=== PATIENT | male | born 1935 | race African-American/Black ===

== ENCOUNTER 2017-03-30 09:42 | Inpatient (IN) | payer MEDICARE, OTHER ==
[~2017-03-30] VITALS: Ht 185.4 cm; Wt 97.1 kg
[~2017-03-30 09:42] MED LIST: AMLO1CAP12 PO; AMLO1TAB43 PO; AMPI1VIA3 IJ; ASPI325T8 PO; CALC600T4 PO; CALC667C PO; CARB1TAB47 PO; CLON0.1T PO; CLON0.5T20 PO; CLON0.5T3 PO; CLON1PAT2 TD; CLON1TAB23 PO; GABA-586 PO; GABA600T2 PO; GLIM2TAB2 PO; HYDR1TAB12 PO; LABE100T3 PO; SITA50TA PO; [UNRECOGNIZED DRUG - OTHER] MC; [UNRECOGNIZED DRUG - OTHER] PO
--- NOTE | 2017-03-30 10:11 | EKG ---
[facility] [address] [place] [address] Test Date: 2017-03-30 Test Time: 10:07:23 Pat Name: MEÑO MADERA Department: Room: Gender: M Professional Shopper: : 1935 Requested By: ARLENE MARRERO Order Number: [id number] Reading MD: Measurements Intervals [place] Rate: 63 P: 38 VA: 196 QRS: 20 QRSD: 98 T: -15 QT: 410 QTc: 423 Interpretive Statements SINUS RHYTHM T ABNORMALITY IN ANTEROLATERAL LEADS RI6.01 Unconfirmed report No previous ECG available for comparison
--- NOTE | 2017-03-30 10:39 | PHYS DOC ---
Past Medical History Past Medical History: CHF, Diabetes-Type II, Hypertension, Renal Disease, Renal Failure Past Surgical History: Other Additional Past Surgical Histo: Left arm A/V fistula Alcohol Use: None Drug Use: None Adult General Chief Complaint Chief Complaint: ALTERED MENTAL STATUS HPI HPI Patient is a 81 year old male with a history of dialysis, HTN, and diabetes presents to the ED complaining of syncopal episode/seizure like activity after 2.5 hours of dialysis. EMS states he had an upset stomach, felt nauseous and then started shaking. States he was fine after a few seconds and was alert and oriented. States right now he just feels like his stomach is a little upset. Denies fever, weakness, headache, vision changes, vomiting, abdominal pain, chest pain or shortness of breath. Review of Systems Review of Systems Constitutional: Denies fever or chills [] Eyes: Denies change in visual acuity, redness, or eye pain [] HENT: Denies nasal congestion or sore throat [] Respiratory: Denies cough or shortness of breath [] Cardiovascular: No additional information not addressed in HPI [] GI: Denies abdominal pain, nausea, vomiting, bloody stools or diarrhea [] : Denies dysuria or hematuria [] Musculoskeletal: Denies back pain or joint pain [] Integument: Denies rash or skin lesions [] Neurologic: Denies headache, focal weakness or sensory changes [] Endocrine: Denies polyuria or polydipsia [] Current Medications Current Medications Allergies Allergies Allergies Coded Allergies Type Severity Reaction Last Updated Verified No Known Allergies Allergy Unknown 02/19/17 Yes Physical Exam Physical Exam Constitutional: Well developed, well nourished, no acute distress, non-toxic appearance. [] HENT: Normocephalic, atraumatic, bilateral external ears normal, oropharynx moist, no oral exudates, nose normal. [] Eyes: PERRLA, EOMI, conjunctiva normal, no discharge. [] Neck: Normal range of motion, no tenderness, supple, no stridor. [] Cardiovascular:Heart rate regular rhythm, no murmur [] Lungs & Thorax: Bilateral breath sounds clear to auscultation [] Abdomen: Bowel sounds normal, soft, no tenderness, no masses, no pulsatile masses. [] Skin: Warm, dry, no erythema, no rash. [] Back: No tenderness, no CVA tenderness. [] Extremities: No tenderness, no cyanosis, no clubbing, ROM intact, no edema. [] Neurologic: Alert and oriented X 3, normal motor function, normal sensory function, no focal deficits noted. [] Psychologic: Affect normal, judgement normal, mood normal. [] Current Patient Data Vital Signs Vital Signs Date Time Temp Pulse Resp B/P (MAP) Pulse Ox O2 Delivery O2 Flow Rate FiO2 03/30/17 12:20 60 18 99 03/30/17 09:53 97.6 121/61 (81) Room Air 97.6 Lab Values Laboratory Tests Test 03/30/17 11:45 White Blood Count 20.9 x10^3/uL (4.0-11.0) H Red Blood Count 3.77 x10^6/uL (4.30-5.70) L Hemoglobin 11.4 g/dL (13.0-17.5) L Hematocrit 35.7 % (39.0-53.0) L Mean Corpuscular Volume 95 fL (79-100) Mean Corpuscular Hemoglobin 30 pg (25-35) Mean Corpuscular Hemoglobin Concent 32 g/dL (31-37) Red Cell Distribution Width 15.3 % (11.5-14.5) H Platelet Count 211 x10^3/uL (140-400) Neutrophils (%) (Auto) 86 % (31-73) H Lymphocytes (%) (Auto) 5 % (24-48) L Monocytes (%) (Auto) 7 % (0-9) Eosinophils (%) (Auto) 1 % (0-3) Basophils (%) (Auto) 1 % (0-3) Neutrophils # (Auto) 18.0 x10^3uL (1.8-7.7) H Lymphocytes # (Auto) 1.0 x10^3/uL (1.0-4.8) Monocytes # (Auto) 1.5 x10^3/uL (0.0-1.1) H Eosinophils # (Auto) 0.2 x10^3/uL (0.0-0.7) Basophils # (Auto) 0.2 x10^3/uL (0.0-0.2) Segmented Neutrophils % 74 % (35-66) H Band Neutrophils % 8 % (0-9) Lymphocytes % 7 % (24-48) L Monocytes % 9 % (0-10) Eosinophils % 2 % (0-5) Platelet Estimate Adequate (ADEQUATE) Prothrombin Time 14.5 SEC (11.7-14.0) H Prothrombin Time INR 1.2 (0.8-1.1) H PTT 25 SEC (24-38) Sodium Level 127 mmol/L (136-145) L Potassium Level 6.1 mmol/L (3.5-5.1) *H Chloride Level 101 mmol/L (98-107) Carbon Dioxide Level 11 mmol/L (21-32) *L Anion Gap 15 (6-14) H Blood Urea Nitrogen 20 mg/dL (8-26) Creatinine 7.4 mg/dL (0.7-1.3) H Estimated GFR (Cockcroft-Gault) 8.6 BUN/Creatinine Ratio 3 (6-20) L Glucose Level 165 mg/dL (70-99) H Lactic Acid Level 1.0 mmol/L (0.4-2.0) Calcium Level 8.5 mg/dL (8.5-10.1) Total Bilirubin 0.2 mg/dL (0.2-1.0) Aspartate Amino Transferase (AST) 20 U/L (15-37) Alanine Aminotransferase (ALT) 30 U/L (16-63) Alkaline Phosphatase 68 U/L (46-116) Creatine Kinase 187 U/L (39-308) Creatine Kinase MB (Mass) 2.1 ng/mL (0.0-3.6) Creatine Kinase MB Relative Index 1.1 % (0-4) Troponin I Quantitative < 0.017 ng/mL (0.000-0.055) Total Protein 8.7 g/dL (6.4-8.2) H Albumin 3.8 g/dL (3.4-5.0) Albumin/Globulin Ratio 0.8 (1.0-1.7) L Laboratory Tests 03/30/17 11:45 Laboratory Tests 03/30/17 11:45 EKG EKG [] Radiology/Procedures Radiology/Procedures PROCEDURE: CT HEAD WO CONTRAST CT of the head without contrast, 03/30/2017: History: Seizure, altered mental status Comparison is made to a study from 07/23/2015. There is mild cerebral atrophy. There are mild deep white matter lucencies bilaterally compatible with chronic ischemic change. The ventricles are within normal limits in size. There is no shift of the midline structures. There is no evidence of acute intracranial hemorrhage or mass effect. IMPRESSION: 1. Chronic findings as described above. 2. No acute intracranial abnormality is detected. PQRS Compliance Statement: One or more of the following individualized dose reduction techniques were utilized for this examination: 1. Automated exposure control 2. Adjustment of the mA and/or kV according to patient size 3. Use of iterative reconstruction technique []PROCEDURE: PORTABLE CHEST 1V Portable chest, 03/30/2017: History: Altered mental status, seizure Comparison is made to a study from 02/19/2017. The heart size is normal. There is calcific plaquing of the aorta. The pulmonary vascularity is within normal limits. No pulmonary infiltrates are seen. There is no evidence of pleural fluid. IMPRESSION: No acute cardiopulmonary abnormality is detected. PROCEDURE: CT ABD PELV W/ IV CONTRST ONLY CT of the abdomen and pelvis with contrast, 03/30/2017: History: Vomiting and syncope after dialysis Multidetector CT imaging was performed following an IV bolus injection of iodinated contrast material. Comparison is made to a study from 05/17/2013. There is mild atelectasis in the lung bases posteriorly. Coronary artery calcifications are evident. No hepatic abnormality is seen. The gallbladder, pancreas and spleen are unremarkable. The kidneys are atrophic. Several intrarenal calculi are present on the left. There are several small renal cysts. The kidneys show no evidence of obstruction. There is moderate aortoiliac calcific plaquing. No abdominal or pelvic adenopathy is seen. The bowel loops are not dilated. The stomach is mildly distended with fluid. No free air or significant free fluid is evident in the abdomen or pelvis. IMPRESSION: 1. Bilateral renal atrophy with left intrarenal calculi and small bilateral renal cysts. 2. Mild bibasilar atelectasis. 3. No acute abdominal or pelvic abnormality is detected. Course & Med Decision Making Course & Med Decision Making Pertinent Labs and Imaging studies reviewed. (See chart for details) []Discussed labs and imaging with patient, pending lactate. Patient well appearing on re-examination. Findings consistent with seizure like activity. Discussed case with nephrology, Dr. Cortes and Hospitalist. Dr. Sloan whom agrees to admission and further management of patient. Placed a consult for neurology as well. Dragon Disclaimer Dragon Disclaimer This electronic medical record was generated, in whole or in part, using a voice recognition dictation system. Departure Departure Impression: Primary Impression: Seizure-like activity Additional Impression: Syncope Disposition: ADMITTED INPATIENT Admitting Physician: Other (Reusc) Referrals: TOBIN BUTLER MD (PCP) Problem Qualifiers ARLENE MARRERO Mar 30, 2017 10:39
--- NOTE | 2017-03-30 10:45 | RAD ---
CT of the head without contrast, 03/30/2017: History: Seizure, altered mental status Comparison is made to a study from 07/23/2015. There is mild cerebral atrophy. There are mild deep white matter lucencies bilaterally compatible with chronic ischemic change. The ventricles are within normal limits in size. There is no shift of the midline structures. There is no evidence of acute intracranial hemorrhage or mass effect. IMPRESSION: 1. Chronic findings as described above. 2. No acute intracranial abnormality is detected. PQRS Compliance Statement: One or more of the following individualized dose reduction techniques were utilized for this examination: 1. Automated exposure control 2. Adjustment of the mA and/or kV according to patient size 3. Use of iterative reconstruction technique
--- NOTE | 2017-03-30 11:24 | RAD ---
Portable chest, 03/30/2017: History: Altered mental status, seizure Comparison is made to a study from 02/19/2017. The heart size is normal. There is calcific plaquing of the aorta. The pulmonary vascularity is within normal limits. No pulmonary infiltrates are seen. There is no evidence of pleural fluid. IMPRESSION: No acute cardiopulmonary abnormality is detected.
[2017-03-30 11:56] LABS: BASO # 0.2 x10^3/uL (0.0-0.2); BASO % 1 % (0-3); EOS % 1 % (0-3); HEMATOCRIT 35.7 % (39.0-53.0); HEMOGLOBIN 11.4 g/dL (13.0-17.5); LYMPH % 5 % (24-48); MEAN CORPUSCULAR HEMOGLOBIN 30 pg (25-35); MEAN CORPUSCULAR HGB CONC 32 g/dL (31-37); MEAN CORPUSCULAR VOLUME 95 fL (79-100); MONO % 7 % (0-9); NEUT % 86 % (31-73); PLATELET COUNT 211 x10^3/uL (140-400); RED BLOOD COUNT 3.77 x10^6/uL (4.30-5.70); RED CELL DISTRIBUTION WIDTH 15.3 % (11.5-14.5); WHITE BLOOD COUNT 20.9 x10^3/uL (4.0-11.0)
[2017-03-30 12:12] LABS: ALBUMIN 3.8 g/dL (3.4-5.0); ALBUMIN/GLOBULIN RATIO 0.8 (1.0-1.7); CALCIUM 8.5 mg/dL (8.5-10.1); CREATININE 7.4 mg/dL (0.7-1.3); GFR 8.6; TOTAL BILIRUBIN 0.2 mg/dL (0.2-1.0); TOTAL PROTEIN 8.7 g/dL (6.4-8.2)
[2017-03-30 12:18] LABS: POTASSIUM 6.1 mmol/L (3.5-5.1)
[2017-03-30 12:19] LABS: CKMB MASS 2.1 ng/mL (0.0-3.6)
[2017-03-30 12:25] LABS: INR 1.2 (0.8-1.1); PROTHROMBIN TIME PATIENT 14.5 SEC (11.7-14.0)
[2017-03-30] MEDS ORDERED: CONTRAST GIVEN MC PRN (13:00)
[2017-03-30] MEDS ORDERED: IOHEXOL 300 MG/ML 75 ML VIAL IV ONE (13:00)
[2017-03-30 13:19] LABS: % EOS 2 % (0-5); PLT ESTIMATE ADEQUATE (ADEQUATE)
--- NOTE | 2017-03-30 13:24 | RAD ---
CT of the abdomen and pelvis with contrast, 03/30/2017: History: Vomiting and syncope after dialysis Multidetector CT imaging was performed following an IV bolus injection of iodinated contrast material. Comparison is made to a study from 05/17/2013. There is mild atelectasis in the lung bases posteriorly. Coronary artery calcifications are evident. No hepatic abnormality is seen. The gallbladder, pancreas and spleen are unremarkable. The kidneys are atrophic. Several intrarenal calculi are present on the left. There are several small renal cysts. The kidneys show no evidence of obstruction. There is moderate aortoiliac calcific plaquing. No abdominal or pelvic adenopathy is seen. The bowel loops are not dilated. The stomach is mildly distended with fluid. No free air or significant free fluid is evident in the abdomen or pelvis. IMPRESSION: 1. Bilateral renal atrophy with left intrarenal calculi and small bilateral renal cysts. 2. Mild bibasilar atelectasis. 3. No acute abdominal or pelvic abnormality is detected. PQRS Compliance Statement: One or more of the following individualized dose reduction techniques were utilized for this examination: 1. Automated exposure control 2. Adjustment of the mA and/or kV according to patient size 3. Use of iterative reconstruction technique
[2017-03-30] MEDS ORDERED: ONDANSETRON PF 4 MG/2 ML VIAL. IV PRN (14:00)
[2017-03-30] MEDS ORDERED: MORPHINE SULFATE 2 MG/ML DISP.SYRIN. IV PRN (14:00)
[2017-03-30 16:05] VITALS: BP 125/58
[2017-03-30 16:06] VITALS: BP 125/58
[2017-03-30] MEDS ORDERED: IV NORMAL SALINE 1000ML BAG 1,000 ML IV PRN (16:30)
[2017-03-30] MEDS ORDERED: FOLI0.8T3 PO (17:06)
[2017-03-30] MEDS ORDERED: GLIM1TAB PO (17:06)
[2017-03-30] MEDS ORDERED: DIALYSIS PATIENT. MC PRN (20:00)
[2017-03-30 21:00] VITALS: BP 133/65
[2017-03-30] MEDS ORDERED: DEXTROSE 50% 25 GM / 50ML DISP.SYRIN. IV PRN (21:45)
[2017-03-30] MEDS ORDERED: GABAPENTIN 300 MG CAPSULE. PO SCH (22:00)
--- NOTE | 2017-03-30 22:22 | HP ---
ADMIT DATE: 03/30/2017 CHIEF COMPLAINT: Syncope in dialysis. HISTORY OF PRESENT ILLNESS: The patient is an 81-year-old gentleman with end-stage renal disease and hypertension who presented to the Emergency Room via transfer from dialysis center where he was noted to have a syncopal episode with shaking about 2-1/2 hours into his dialysis. He relates that he had an upset stomach for the last day, felt nauseous, started shaking (actually takes Klonopin for the tremors). He does not remember the episode at all, apparently was alert and oriented immediately afterwards. His stomach upset since then has been getting better. Both he and his have some cough and upper respiratory symptoms, but mild without any fevers, headaches, vision changes or abdominal pain. In the Emergency Room, he was found with potassium of greater than 6 and therefore admitted for continued dialysis and workup of his syncopal episode. Of note, the patient actually was admitted with same symptoms in 01/2017. PAST MEDICAL HISTORY: End-stage renal disease, hyperkalemia, hypertension, CHF, systolic with an EF of 40-45%, moderate diastolic dysfunction as well, hyperlipidemia, peripheral vascular disease, status post CVA, diabetes mellitus type 2, hypothyroidism, GERD, osteoarthritis and tremors. FAMILY HISTORY: Denies any family history of renal disease. SOCIAL HISTORY: Lives with his . No toxic habits. ALLERGIES: No known drug allergies. MEDICATIONS: MAR reconciled with home medications. REVIEW OF SYSTEMS: Positive as per HPI. His abdominal symptoms have improved. Denies any pain. He is hungry, did not have any episodes of vomiting. PHYSICAL EXAMINATION: VITAL SIGNS: From today show a blood pressure of 133/65, heart rate at 79, respiratory rate at 20. He is afebrile, of note, none of the blood pressures noted in the ER are low. GENERAL: This is an 81-year-old gentleman, alert and oriented, in no acute distress. HEENT: Shows no scleral icterus. NECK: Supple. LUNGS: Clear. HEART: Has regular rate and rhythm. ABDOMEN: Has positive bowel sounds, soft, nontender. EXTREMITIES: Show no edema, no clubbing, no cyanosis. SKIN: Warm, soft and dry. LABORATORY DATA: CBC with a WBC of 20.9, hemoglobin 11.4, platelets of 212. Manual differential with 74 segs and 8 bands. Chemistries with a BUN and creatinine of 20 and 7.4. Sodium of 127, potassium 6.1, CO2 of 11. LFTs within normal, albumin at 3.8, glucose 165. ASSESSMENT AND PLAN: The patient is an 81-year-old gentleman with multiple medical issues and recurrent episode of syncope at dialysis. He had been worked up by Cardiology and Nephrology during his past admit in January. The syncopal episode was attributed to fluid shifts during dialysis. Suspect the same is true this time. The findings are hauntingly similar including metabolic acidosis as well as hyperkalemia and hyponatremia. He has received continued dialysis here in the hospital already. We will continue to follow him closely with his labs. What is different this time is he has signs and symptoms of infection, although etiology or specific source is not clear. Possible viral GI infection as the symptoms of nausea seemed to have improved. However, white count is significantly high with left shift. We will start broad spectrum antibiotics. Blood cultures have been obtained. Await further results. Diabetes currently is well controlled. Continue home meds and add insulin sliding scale. All other home medications will be continued. MICK BOSTON MD DR: JONELLE/nts JOB#: [id number] / [id number] TOBIN Zabala MD [facility]
[2017-03-30 23:20] VITALS: BP 140/70
[2017-03-30] MEDS: clonazePAM 0.5 MG TABLET PO SCH (23:28)
[2017-03-30] MEDS: LISINOPRIL 20 MG TABLET PO SCH (23:29)
[2017-03-30] MEDS: amLODIPine BESYLATE 10 MG TABLET PO SCH (23:29)
[2017-03-31 03:02] LABS: BASO % 0 % (0-3); EOS % 1 % (0-3); HEMATOCRIT 33.1 % (39.0-53.0); HEMOGLOBIN 11.2 g/dL (13.0-17.5); LYMPH # 1.5 x10^3/uL (1.0-4.8); LYMPH % 14 % (24-48); MEAN CORPUSCULAR HEMOGLOBIN 30 pg (25-35); MEAN CORPUSCULAR HGB CONC 34 g/dL (31-37); MEAN CORPUSCULAR VOLUME 89 fL (79-100); MONO % 6 % (0-9); NEUT % 79 % (31-73); PLATELET COUNT 200 x10^3/uL (140-400); RED BLOOD COUNT 3.73 x10^6/uL (4.30-5.70); RED CELL DISTRIBUTION WIDTH 14.4 % (11.5-14.5); WHITE BLOOD COUNT 10.7 x10^3/uL (4.0-11.0)
[2017-03-31 03:20] VITALS: BP 128/62
[2017-03-31 03:22] LABS: ALBUMIN 3.2 g/dL (3.4-5.0); ALBUMIN/GLOBULIN RATIO 0.7 (1.0-1.7); CALCIUM 8.4 mg/dL (8.5-10.1); CREATININE 5.5 mg/dL (0.7-1.3); GFR 12.1; POTASSIUM 3.7 mmol/L (3.5-5.1); TOTAL BILIRUBIN 0.2 mg/dL (0.2-1.0); TOTAL PROTEIN 8.1 g/dL (6.4-8.2)
[2017-03-31 07:00] VITALS: BP 124/64
[2017-03-31] MEDS ORDERED: GLIMEPIRIDE 2 MG TABLET. PO SCH (08:00)
[2017-03-31] MEDS ORDERED: FOLIC/VIT B COMP W-C (RENAL) TABLET. PO SCH ×2 (09:00)
[2017-03-31] MEDS ORDERED: BENAZEPRIL PO SCH (09:00)
[2017-03-31] MEDS ORDERED: ASPIRIN 325 MG TABLET PO SCH (09:00)
[2017-03-31] MEDS ORDERED: GLIMEPIRIDE PO SCH (09:00)
[2017-03-31] MEDS ORDERED: [UNRECOGNIZED DRUG - OTHER] PO SCH (09:00)
[2017-03-31] MEDS ORDERED: LABETALOL HCL 100 MG TABLET. PO SCH (09:00)
[2017-03-31] MEDS ORDERED: LINAGLIPTIN 5 MG TABLET PO SCH (09:00)
[2017-03-31] MEDS ORDERED: AMLODIPINE BESYLATE PO SCH (09:00)
[2017-03-31] MEDS: INSULIN ASPART 300 UNITS/3 ML INSULN.PEN SQ SCH ×2 (09:37→12:05)
--- NOTE | 2017-03-31 09:38 | PDOC ---
PROGRESS NOTES Chief Complaint Chief Complaint Syncope at HD ASSESSMENT AND PLAN: 1. Syncope: hx of same, with complete W/U in 01/2017. 2. Hyperkalemia: critical. received HD yesterday in hospital 3. ESRD: on HD as per nephrology 4. Metabolic Acidosis: resolved monitor w/HD 5. Leukocytosis : resolved w/in 12 hrs 6. 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 EPO, iron with HD 7. CHF: echo 02/19 with EF 40-45%, mod DD. 8. HTN: well controlled. cont current regimen; monitor 9. HLD: on statin 10. PVD: hx CVA 11. DM2: well controlled on home regimen. ISS added. recent HgbA1c 6.9 12. Diabetic neuropathy: on gabapentin 13. Hypothyroidism: borderline high TSH with lowish T7. needs to be repeated in non-critical setting, kiran at his age. 14. GERD 15. OA: cont home regimen 16. Anxiety: on clonazepam; change to PRN as he appears sedated 17. Snoring: with accompanying O2 drop - suspicious for REBECA. needs sleep study on O/P basis 18. Prophylaxis: heparin SQ 19. Dispo: home when cleared by nephrology History of Present Illness History of Present Illness feels fine, no dizziness, lightheadedness, no SOB Vitals Vitals Vital Signs Date Time Temp Pulse Resp B/P (MAP) Pulse Ox O2 Delivery O2 Flow Rate FiO2 03/31/17 07:00 99.4 77 20 124/64 (84) 96 Room Air 99.4 Physical Exam General: Alert, Oriented X3, Cooperative Heart: Regular rate Lungs: Clear Abdomen: Normal bowel sounds Extremities: No clubbing, No edema Skin: No rashes Labs LABS Laboratory Tests Test 03/30/17 11:45 03/30/17 21:04 03/31/17 02:30 03/31/17 07:46 White Blood Count 20.9 x10^3/uL (4.0-11.0) 10.7 x10^3/uL (4.0-11.0) Red Blood Count 3.77 x10^6/uL (4.30-5.70) 3.73 x10^6/uL (4.30-5.70) Hemoglobin 11.4 g/dL (13.0-17.5) 11.2 g/dL (13.0-17.5) Hematocrit 35.7 % (39.0-53.0) 33.1 % (39.0-53.0) Mean Corpuscular Volume 95 fL (79-100) 89 fL (79-100) Mean Corpuscular Hemoglobin 30 pg (25-35) 30 pg (25-35) Mean Corpuscular Hemoglobin Concent 32 g/dL (31-37) 34 g/dL (31-37) Red Cell Distribution Width 15.3 % (11.5-14.5) 14.4 % (11.5-14.5) Platelet Count 211 x10^3/uL (140-400) 200 x10^3/uL (140-400) Neutrophils (%) (Auto) 86 % (31-73) 79 % (31-73) Lymphocytes (%) (Auto) 5 % (24-48) 14 % (24-48) Monocytes (%) (Auto) 7 % (0-9) 6 % (0-9) Eosinophils (%) (Auto) 1 % (0-3) 1 % (0-3) Basophils (%) (Auto) 1 % (0-3) 0 % (0-3) Neutrophils # (Auto) 18.0 x10^3uL (1.8-7.7) 8.4 x10^3uL (1.8-7.7) Lymphocytes # (Auto) 1.0 x10^3/uL (1.0-4.8) 1.5 x10^3/uL (1.0-4.8) Monocytes # (Auto) 1.5 x10^3/uL (0.0-1.1) 0.6 x10^3/uL (0.0-1.1) Eosinophils # (Auto) 0.2 x10^3/uL (0.0-0.7) 0.2 x10^3/uL (0.0-0.7) Basophils # (Auto) 0.2 x10^3/uL (0.0-0.2) 0.0 x10^3/uL (0.0-0.2) Segmented Neutrophils % 74 % (35-66) Band Neutrophils % 8 % (0-9) Lymphocytes % 7 % (24-48) Monocytes % 9 % (0-10) Eosinophils % 2 % (0-5) Platelet Estimate Adequate (ADEQUATE) Prothrombin Time 14.5 SEC (11.7-14.0) Prothromb Time International Ratio 1.2 (0.8-1.1) Activated Partial Thromboplast Time 25 SEC (24-38) Sodium Level 127 mmol/L (136-145) 135 mmol/L (136-145) Potassium Level 6.1 mmol/L (3.5-5.1) 3.7 mmol/L (3.5-5.1) Chloride Level 101 mmol/L (98-107) 98 mmol/L (98-107) Carbon Dioxide Level 11 mmol/L (21-32) 26 mmol/L (21-32) Anion Gap 15 (6-14) 11 (6-14) Blood Urea Nitrogen 20 mg/dL (8-26) 15 mg/dL (8-26) Creatinine 7.4 mg/dL (0.7-1.3) 5.5 mg/dL (0.7-1.3) Estimated GFR (Cockcroft-Gault) 8.6 12.1 BUN/Creatinine Ratio 3 (6-20) 3 (6-20) Glucose Level 165 mg/dL (70-99) 155 mg/dL (70-99) Lactic Acid Level 1.0 mmol/L (0.4-2.0) Calcium Level 8.5 mg/dL (8.5-10.1) 8.4 mg/dL (8.5-10.1) Total Bilirubin 0.2 mg/dL (0.2-1.0) 0.2 mg/dL (0.2-1.0) Aspartate Amino Transf (AST/SGOT) 20 U/L (15-37) 18 U/L (15-37) Alanine Aminotransferase (ALT/SGPT) 30 U/L (16-63) 28 U/L (16-63) Alkaline Phosphatase 68 U/L (46-116) 57 U/L (46-116) Creatine Kinase 187 U/L (39-308) Creatine Kinase MB (Mass) 2.1 ng/mL (0.0-3.6) Creatine Kinase MB Relative Index 1.1 % (0-4) Troponin I Quantitative < 0.017 ng/mL (0.000-0.055) < 0.017 ng/mL (0.000-0.055) Total Protein 8.7 g/dL (6.4-8.2) 8.1 g/dL (6.4-8.2) Albumin 3.8 g/dL (3.4-5.0) 3.2 g/dL (3.4-5.0) Albumin/Globulin Ratio 0.8 (1.0-1.7) 0.7 (1.0-1.7) Glucose (Fingerstick) 132 mg/dL (70-99) 111 mg/dL (70-99) MICK BOSTON MD Mar 31, 2017 09:38
[2017-03-31] MEDS: CALCIUM ACETATE 667 MG CAPSULE PO SCH ×2 (09:40→12:14)
[2017-03-31] MEDS: amLODIPine BESYLATE 10 MG TABLET PO SCH (09:40)
[2017-03-31] MEDS: LISINOPRIL 20 MG TABLET PO SCH (09:40)
[2017-03-31] MEDS: clonazePAM 0.5 MG TABLET PO SCH (09:40)
[2017-03-31 10:54] VITALS: BP 137/67
--- NOTE | 2017-03-31 12:52 | PDOC2 ---
CONSULT Date of Consult Date of Consult DATE: 03/31/17 TIME: 12:50 Reason for Consult Reason for Consult: ESRD Referring Physician Referring Physician: Dr Sloan Identification/Chief Complaint Chief Complaint Syncope/ Pre-Syncope on HD Problems: Source Source: Chart review, Patient History of Present Illness Reason for Visit: as dictated Past Medical History Cardiovascular: CHF, HTN, Hyperlipidemia CENTRAL NERVOUS SYSTEM: Periperal neuropathy GI: GERD Heme/Onc: Anemia NOS Psych: Anxiety Musculoskeletal: Osteoarthritis Infectious disease: Other Renal/: Chronic renal failure, Other Endocrine: Diabetes Past Surgical History Past Surgical History: Cataract Removal, Other Family History Family History: Diabetes Social History ALCOHOL: none Drugs: None Lives: with Family Current Medications Current Medications Current Medications Iohexol (Omnipaque 300 Mg/ml) 75 ml 1X ONCE IV Last administered on 03/30/17 12:53; Start 03/30/17 at 13:00; Stop 03/30/17 at 13:01; Status DC Info (Do NOT chart on this entry -- for MONITORING) 1 each PRN DAILY PRN MC SEE COMMENTS; Start 03/30/17 at 13:00; Stop 04/01/17 at 12:59 Ondansetron HCl (Zofran) 4 mg PRN Q8HRS PRN IV NAUSEA/VOMITING Last administered on 03/30/17 15:59; Start 03/30/17 at 14:00; Stop 03/31/17 at 13:59 Morphine Sulfate 2 mg PRN Q2HR PRN IV PAIN; Start 03/30/17 at 14:00; Stop 03/31 at 13:59 Sodium Chloride 1,000 ml @ 400 mls/hr Q2H30M PRN IV PATENCY; Start 03/30/17 at 16:30; Stop 03/31/17 at 04:29; Status DC Info (PHARMACY MONITORING -- do not chart) 1 each PRN DAILY PRN MC SEE COMMENTS ; Start 03/30/17 at 20:00 Aspirin (Chuckie Aspirin) 325 mg DAILY PO Last administered on 03/31/17 09:40; Start 03/31/17 at 09:00 Calcium Acetate (Phoslo) 2,001 mg TIDAC PO Last administered on 03/31/17 12:14 ; Start 03/31/17 at 07:30 Clonazepam (KlonoPIN) 0.5 mg TID PO Last administered on 03/31/17 09:40; Start 03/30/17 at 21:45 Vitamin B Complex/ Vitamin C (Tess-Kunal) 1 tab DAILY PO Last administered on 09:41; Start 03/31/17 at 09:00 Glimepiride (Amaryl) 2 mg BIDWMEALS PO Last administered on 03/31/17 09:40; Start 03/31/17 at 08:00 Labetalol HCl (Trandate) 100 mg DAILY PO Last administered on 03/31/17 09:41; Start 03/31/17 at 09:00 Non-Formulary Medication 1 each BID PO ; Start 03/31/17 at 09:00; Status UNV Vitamin B Complex/ Vitamin C (Tess-Kunal) 1 tab DAILY PO ; Start 03/31/17 at 09: 00 Gabapentin (Neurontin) 600 mg HS PO Last administered on 03/30/17 23:28; Start 03/30/17 at 22:00 Non-Formulary Medication 2 tab DAILY PO ; Start 03/31/17 at 09:00; Status UNV Linagliptin (Tradjenta) 5 mg DAILY08 PO Last administered on 03/31/17 09:41; Start 03/31/17 at 09:00 Amlodipine Besylate (Norvasc) 10 mg BID PO Last administered on 03/31/17 09:40 ; Start 03/30/17 at 22:00 Lisinopril (Prinivil) 20 mg BID PO Last administered on 03/31/17 09:40; Start 03/30/17 at 21:00 Insulin Aspart (NovoLOG) 0-5 UNITS TIDWMEALS SQ ; Start 03/31/17 at 08:00 Dextrose (Dextrose 50%-Water Syringe) 12.5 gm PRN Q15MIN PRN IV SEE COMMENTS; Start 03/30/17 at 21:45 Ceftriaxone Sodium 1 gm/ Sodium Chloride 50 ml @ 100 mls/hr Q24H IV Last administered on 03/30/17 23:30; Start 03/30/17 at 22:00 Active Scripts Active Reported Nephro-Kunal Tablet (Folic Acid/Vitamin B Comp W-C) 0.8 Mg Tablet 1 Tab PO DAILY Amaryl (Glimepiride) 1 Mg Tablet 2 Tab PO DAILY Labetalol Hcl 100 Mg Tablet 1 Tab PO DAILY Januvia (Sitagliptin Phosphate) 50 Mg Tablet 1 Tab PO DAILY Glimepiride 2 Mg Tablet 1 Tab PO BID Gabapentin 600 Mg Tablet 600 Mg PO TID Clonazepam 0.5 Mg Tablet 0.5 Mg PO TID Calcium Acetate 667 Mg Capsule 2,001 Mg PO TIDAC Amlodipine-Benazepril 10-20 Mg (Amlodipine Besylate/Benazepril) 1 Each Capsule 1 Each PO BID Nephronex Capsule (Folic Acid/B Complex & C No.10) 1 Mg Capsule 1 Cap PO DAILY Aspirin 325 Mg Tablet 325 Mg PO DAILY Allergies Allergies: Coded Allergies: No Known Allergies (Verified Allergy, Unknown, 02/19/17) ROS Review of System GEN: no Fevers no Chills EYES: no Visual Complaints ENT: no EN Drainage no Hearing deficiets CVS: no Orthopnea no CP RESP: no SOB no MARCOS GI: no Nausea no Vomiting : no Dysuria no Urgency HEME: no easy bruising no Palp Ly Nodes NEURO no Focal Weakness no Sz PSYCH: no Suicidal Ideation no Depression SKIN: no Rashes ENDO: no Polyuria or Polydipsia no Hot/Cold Intolerance MU SK: no Arthraigia no Myalgia Physical Exam Physical Exam General Appearance: Awake Alert Oriented x 3 In no Distress Eyes: VIsion Unchanged Conjunctiva Normal EN: No EN Drainage Mucous Memb. moist Neck: no JVD min JVP Supple no Thyromegaly CVS: S1 S2 + Murmur No Gallop No Rub no Edema Resp: no Rales no Rhonchi no Acc. Muscle use GI: BAS +ve NO Bruit Non Tender Non Distended : no CVA tenderness; no Suprapubic Tenderness SKIN: no Rashes Breast Exam deferred Mu.Sk: Adequate ROM min Muscle Atrophy Heme: Unable to palpate Obvious LAD no Splenomegaly NEURO: Good Strength and Tone Cranial Nerves II - XII grossly intact Psych: not Depressed no Active hallucination Vital Signs Vital Signs Date Time Temp Pulse Resp B/P (MAP) Pulse Ox O2 Delivery O2 Flow Rate FiO2 03/31/17 10:54 99.2 81 20 137/67 (90) 96 Room Air 99.2 Assessment & Plan ESRD Current FLuid and E-lyte status does not necessitate emergent need for Dialysis. Will re-evaluate for Dialysis in am and continue on MWF schedule. ^K - assow ith Met Aicdosis - better now Met Acidosis - Better after HD Anemia: Epogen if hgb < 10. Transfuse with next HD as needed. HTN: (transient Hypotension vs Sz) Current BP meds reviewed. See orders for changes. HypoNatremia - now resolved Discussed Plan of Care and prognosis etc. at length with family. Labs Labs Laboratory Tests Test 03/30/17 11:45 03/30/17 21:04 03/31/17 02:30 03/31/17 07:46 White Blood Count 20.9 x10^3/uL (4.0-11.0) 10.7 x10^3/uL (4.0-11.0) Red Blood Count 3.77 x10^6/uL (4.30-5.70) 3.73 x10^6/uL (4.30-5.70) Hemoglobin 11.4 g/dL (13.0-17.5) 11.2 g/dL (13.0-17.5) Hematocrit 35.7 % (39.0-53.0) 33.1 % (39.0-53.0) Mean Corpuscular Volume 95 fL (79-100) 89 fL (79-100) Mean Corpuscular Hemoglobin 30 pg (25-35) 30 pg (25-35) Mean Corpuscular Hemoglobin Concent 32 g/dL (31-37) 34 g/dL (31-37) Red Cell Distribution Width 15.3 % (11.5-14.5) 14.4 % (11.5-14.5) Platelet Count 211 x10^3/uL (140-400) 200 x10^3/uL (140-400) Neutrophils (%) (Auto) 86 % (31-73) 79 % (31-73) Lymphocytes (%) (Auto) 5 % (24-48) 14 % (24-48) Monocytes (%) (Auto) 7 % (0-9) 6 % (0-9) Eosinophils (%) (Auto) 1 % (0-3) 1 % (0-3) Basophils (%) (Auto) 1 % (0-3) 0 % (0-3) Neutrophils # (Auto) 18.0 x10^3uL (1.8-7.7) 8.4 x10^3uL (1.8-7.7) Lymphocytes # (Auto) 1.0 x10^3/uL (1.0-4.8) 1.5 x10^3/uL (1.0-4.8) Monocytes # (Auto) 1.5 x10^3/uL (0.0-1.1) 0.6 x10^3/uL (0.0-1.1) Eosinophils # (Auto) 0.2 x10^3/uL (0.0-0.7) 0.2 x10^3/uL (0.0-0.7) Basophils # (Auto) 0.2 x10^3/uL (0.0-0.2) 0.0 x10^3/uL (0.0-0.2) Segmented Neutrophils % 74 % (35-66) Band Neutrophils % 8 % (0-9) Lymphocytes % 7 % (24-48) Monocytes % 9 % (0-10) Eosinophils % 2 % (0-5) Platelet Estimate Adequate (ADEQUATE) Prothrombin Time 14.5 SEC (11.7-14.0) Prothromb Time International Ratio 1.2 (0.8-1.1) Activated Partial Thromboplast Time 25 SEC (24-38) Sodium Level 127 mmol/L (136-145) 135 mmol/L (136-145) Potassium Level 6.1 mmol/L (3.5-5.1) 3.7 mmol/L (3.5-5.1) Chloride Level 101 mmol/L (98-107) 98 mmol/L (98-107) Carbon Dioxide Level 11 mmol/L (21-32) 26 mmol/L (21-32) Anion Gap 15 (6-14) 11 (6-14) Blood Urea Nitrogen 20 mg/dL (8-26) 15 mg/dL (8-26) Creatinine 7.4 mg/dL (0.7-1.3) 5.5 mg/dL (0.7-1.3) Estimated GFR (Cockcroft-Gault) 8.6 12.1 BUN/Creatinine Ratio 3 (6-20) 3 (6-20) Glucose Level 165 mg/dL (70-99) 155 mg/dL (70-99) Lactic Acid Level 1.0 mmol/L (0.4-2.0) Calcium Level 8.5 mg/dL (8.5-10.1) 8.4 mg/dL (8.5-10.1) Total Bilirubin 0.2 mg/dL (0.2-1.0) 0.2 mg/dL (0.2-1.0) Aspartate Amino Transf (AST/SGOT) 20 U/L (15-37) 18 U/L (15-37) Alanine Aminotransferase (ALT/SGPT) 30 U/L (16-63) 28 U/L (16-63) Alkaline Phosphatase 68 U/L (46-116) 57 U/L (46-116) Creatine Kinase 187 U/L (39-308) Creatine Kinase MB (Mass) 2.1 ng/mL (0.0-3.6) Creatine Kinase MB Relative Index 1.1 % (0-4) Troponin I Quantitative < 0.017 ng/mL (0.000-0.055) < 0.017 ng/mL (0.000-0.055) Total Protein 8.7 g/dL (6.4-8.2) 8.1 g/dL (6.4-8.2) Albumin 3.8 g/dL (3.4-5.0) 3.2 g/dL (3.4-5.0) Albumin/Globulin Ratio 0.8 (1.0-1.7) 0.7 (1.0-1.7) Glucose (Fingerstick) 132 mg/dL (70-99) 111 mg/dL (70-99) Test 03/31/17 11:41 Glucose (Fingerstick) 143 mg/dL (70-99) Laboratory Tests Test 03/30/17 21:04 03/31/17 02:30 03/31/17 07:46 03/31/17 11:41 Glucose (Fingerstick) 132 mg/dL (70-99) 111 mg/dL (70-99) 143 mg/dL (70-99) White Blood Count 10.7 x10^3/uL (4.0-11.0) Red Blood Count 3.73 x10^6/uL (4.30-5.70) Hemoglobin 11.2 g/dL (13.0-17.5) Hematocrit 33.1 % (39.0-53.0) Mean Corpuscular Volume 89 fL (79-100) Mean Corpuscular Hemoglobin 30 pg (25-35) Mean Corpuscular Hemoglobin Concent 34 g/dL (31-37) Red Cell Distribution Width 14.4 % (11.5-14.5) Platelet Count 200 x10^3/uL (140-400) Neutrophils (%) (Auto) 79 % (31-73) Lymphocytes (%) (Auto) 14 % (24-48) Monocytes (%) (Auto) 6 % (0-9) Eosinophils (%) (Auto) 1 % (0-3) Basophils (%) (Auto) 0 % (0-3) Neutrophils # (Auto) 8.4 x10^3uL (1.8-7.7) Lymphocytes # (Auto) 1.5 x10^3/uL (1.0-4.8) Monocytes # (Auto) 0.6 x10^3/uL (0.0-1.1) Eosinophils # (Auto) 0.2 x10^3/uL (0.0-0.7) Basophils # (Auto) 0.0 x10^3/uL (0.0-0.2) Sodium Level 135 mmol/L (136-145) Potassium Level 3.7 mmol/L (3.5-5.1) Chloride Level 98 mmol/L (98-107) Carbon Dioxide Level 26 mmol/L (21-32) Anion Gap 11 (6-14) Blood Urea Nitrogen 15 mg/dL (8-26) Creatinine 5.5 mg/dL (0.7-1.3) Estimated GFR (Cockcroft-Gault) 12.1 BUN/Creatinine Ratio 3 (6-20) Glucose Level 155 mg/dL (70-99) Calcium Level 8.4 mg/dL (8.5-10.1) Total Bilirubin 0.2 mg/dL (0.2-1.0) Aspartate Amino Transf (AST/SGOT) 18 U/L (15-37) Alanine Aminotransferase (ALT/SGPT) 28 U/L (16-63) Alkaline Phosphatase 57 U/L (46-116) Troponin I Quantitative < 0.017 ng/mL (0.000-0.055) Total Protein 8.1 g/dL (6.4-8.2) Albumin 3.2 g/dL (3.4-5.0) Albumin/Globulin Ratio 0.7 (1.0-1.7) SLAVA OLIVEIRA MD Mar 31, 2017 12:52
--- NOTE | 2017-03-31 22:49 | CONS ---
DATE OF CONSULTATION: PRIMARY CARE PHYSICIAN: Richa Sloan M.D. REASON FOR CONSULTATION: Insert altered mental status. HISTORY OF PRESENT ILLNESS: The patient is an 81-year-old -[place] gentleman with ESRD, dialyzes on a Sunday, Sunday and Sunday basis. He was at dialysis yesterday. He apparently had a pneumonia recently and may have lost some weight, however, has started to eat better and appetite has picked up. The patient was at dialysis in about 2-1/2 hours and during dialysis, developed a syncopal episode/seizure-like activity. His blood pressures were high, then low and then high again. According to the , he also had nausea and he was brought to the ER for further evaluation. In this setting, on arrival to the ER, he was noted to have a sodium of 127, potassium of 6.1 and a bicarbonate of 11. He was emergently dialyzed yesterday and these numbers are much better today. He denies any problems at this time. He is eating and drinking pretty well. He denies current ongoing fevers or chills at this time, although he is noted to have a low grade fever of 99.5 yesterday and 99.2, currently. Imaging studies were reviewed and are nonrevealing for obvious source per se. For rest of the details, please see electronic records. SLAVA OLIVEIRA MD DR: CHELY/rome JOB#: [id number] / [id number]
--- NOTE | 2017-04-02 16:40 | DS ---
DATE OF DISCHARGE: 03/31/2017 CHIEF COMPLAINT: Syncope at HD. HOSPITAL COURSE: The patient is an 81-year-old gentleman who experienced a syncopal episode during dialysis. In the Emergency Room, he was found with hyperkalemia and metabolic acidosis and therefore admitted for urgent additional dialysis. Of note, he had identical presentation about a month prior in January of 2017 and had received complete neurology and cardiology workup at that time without any significant findings. Echo in January had shown an EF of 40-45% and moderate diastolic dysfunction. All his home medications were continued. No other complications arose. PHYSICAL EXAMINATION: VITAL SIGNS: Show blood pressure of 124/64, heart rate of 77, respiratory rate of 20. He is afebrile. GENERAL: This is a well-nourished 81-year-old frail appearing -[place] gentleman, alert and oriented, no acute distress. LUNGS: Clear. HEART: Regular rate and rhythm. ABDOMEN: Has positive bowel sounds, soft, nontender. EXTREMITIES: Show no edema. DISCHARGE DATE: March 31. DISCHARGE DIAGNOSES: Syncope (attributed to rapid fluid shift at dialysis). DISCHARGE DISPOSITION: To home. DISCHARGE CONDITION: Improved. DISCHARGE MEDICATIONS: Please refer to MAR. DISCHARGE INSTRUCTIONS: The patient will continue with dialysis as previously arranged. He will follow up with his primary care physician in 1-2 weeks. MICK BOSTON MD DR: JONELLE/nts JOB#: [id number] / [id number] TOBIN Zabala MD MTDD
== END 2017-03-31 14:17 | disposition home or self-care (01) | DRG 291 ==
LOC: ER 09:42 → 6 SOUTH 12:50
PROVIDERS: ADMIT Internal Medicine Hematology & Oncology; ATTEND Internal Medicine Hematology & Oncology
DX: I13.2 Hypertensive heart and chronic kidney disease with heart failure and with stage 5 chronic kidney disease, or end stage renal disease (principal); N18.6 End stage renal disease; E87.2 Acidosis; R06.83 Snoring; E87.1 Hypo-osmolality and hyponatremia; I50.42 Chronic combined systolic (congestive) and diastolic (congestive) heart failure; J98.11 Atelectasis; E11.22 Type 2 diabetes mellitus with diabetic chronic kidney disease; E11.40 Type 2 diabetes mellitus with diabetic neuropathy, unspecified; D63.1 Anemia in chronic kidney disease; E03.9 Hypothyroidism, unspecified; E78.5 Hyperlipidemia, unspecified; E87.5 Hyperkalemia; F41.9 Anxiety disorder, unspecified; M19.90 Unspecified osteoarthritis, unspecified site; I25.10 Atherosclerotic heart disease of native coronary artery without angina pectoris; I73.9 Peripheral vascular disease, unspecified; K21.9 Gastro-esophageal reflux disease without esophagitis; N20.0 Calculus of kidney; N28.1 Cyst of kidney, acquired; Z83.3 Family history of diabetes mellitus; Z86.73 Personal history of transient ischemic attack (TIA), and cerebral infarction without residual deficits; Z99.2 Dependence on renal dialysis
CPT/HCPCS: 36415; 70450; 71010; 74177; 80053; 82553; 82962; 83605; 84484; 85007; 85025; 85610; 85730; 87040; 93005; 96374; J0696; J1815; J2405; Q9967; 99285-25

== ENCOUNTER 2017-09-24 13:12 | Emergency (ER) | payer MEDICARE, OTHER ==
[2017-09-24 14:00] LABS: ADD MAN DIFF? NO
[2017-09-24 14:08] LABS: BASO # 0.1 x10^3/uL (0.0-0.2); BASO % 1 % (0-3); EOS # 1.1 x10^3/uL (0.0-0.7); EOS % 12 % (0-3); HEMATOCRIT 35.1 % (39.0-53.0); HEMOGLOBIN 11.7 g/dL (13.0-17.5); LYMPH # 1.9 x10^3/uL (1.0-4.8); LYMPH % 21 % (24-48); MEAN CORPUSCULAR HEMOGLOBIN 30 pg (25-35); MEAN CORPUSCULAR HGB CONC 33 g/dL (31-37); MEAN CORPUSCULAR VOLUME 89 fL (79-100); MONO # 0.8 x10^3/uL (0.0-1.1); MONO % 9 % (0-9); NEUT # 5.3 x10^3uL (1.8-7.7); NEUT % 57 % (31-73); PLATELET COUNT 201 x10^3/uL (140-400); RED BLOOD COUNT 3.93 x10^6/uL (4.30-5.70); WHITE BLOOD COUNT 9.2 x10^3/uL (4.0-11.0)
[2017-09-24 14:18] LABS: INR 1.1 (0.8-1.1); PROTHROMBIN TIME PATIENT 13.5 SEC (11.7-14.0)
[2017-09-24 14:21] LABS: ANION GAP 9 (6-14); BLOOD UREA NITROGEN 14 mg/dL (8-26); BUN/CREATININE RATIO 2 (6-20); CALCIUM 8.8 mg/dL (8.5-10.1); CARBON DIOXIDE 28 mmol/L (21-32); CHLORIDE 105 mmol/L (98-107); CREATININE 6.9 mg/dL (0.7-1.3); GFR 9.3; GLUCOSE 86 mg/dL (70-99); POTASSIUM 4.1 mmol/L (3.5-5.1); SODIUM 142 mmol/L (136-145)
[2017-09-24 14:27] LABS: ALBUMIN 3.4 g/dL (3.4-5.0); ALBUMIN/GLOBULIN RATIO 0.7 (1.0-1.7); ALK PHOS 71 U/L (46-116); ALT (SGPT) 28 U/L (16-63); AST (SGOT) 14 U/L (15-37); TOTAL BILIRUBIN 0.4 mg/dL (0.2-1.0); TOTAL PROTEIN 8.3 g/dL (6.4-8.2)
[2017-09-24 14:29] LABS: PARTIAL THROMBOPLASTIN TIME 28 SEC (24-38)
== END 2017-09-24 15:58 | disposition home or self-care (01) ==
LOC: ER 13:12
DX: T82.838A Hemorrhage due to vascular prosthetic devices, implants and grafts, initial encounter (principal); E11.9 Type 2 diabetes mellitus without complications; I10 Essential (primary) hypertension; Z99.2 Dependence on renal dialysis; Y84.1 Kidney dialysis as the cause of abnormal reaction of the patient, or of later complication, without mention of misadventure at the time of the procedure; Y92.89 Other specified places as the place of occurrence of the external cause
CPT/HCPCS: 36415; 80053; 85025; 85610; 85730; 99284

== ENCOUNTER → 2020-02-24 | Outpatient (CLI) | payer MEDICARE, OTHER ==
[2019-11-27 11:37] VITALS: BP 128/62
[~2020-02-24] MED LIST changes: -AMLO1CAP12 PO; +AMLO1CAP13 PO; +ASPI-886 PO; +ATOR20TA58 PO; -CALC600T4 PO; +CALC600T6 PO; +CLON-77 PO; -CLON0.5T3 PO; -CLON1PAT2 TD; +CLON1PAT6 TD; +CONTRAST GIVEN. MC PRN; +DOXY100T PO; +FOLI0.8T3 PO; -GABA-586 PO; +GABA300C18 PO; -GABA600T2 PO; +GABA600T7 PO; +GLIM1TAB PO; -GLIM2TAB2 PO; +GLIM2TAB7 PO; -HYDR1TAB12 PO; +HYDR1TAB13 PO; +IOHEXOL 300 MG/ML 100ML VIAL. IV ONE; -LABE100T3 PO; +LABE100T5 PO; +LACT1CAP19 PO
--- NOTE | 2020-02-24 16:26 | RAD ---
Examination: CT of the chest abdomen pelvis with IV contrast HISTORY: History of opacity in the chest, abnormal kidneys on ultrasound. COMPARISON: 11/25/2019 TECHNIQUE: Axial CT images of the chest abdomen pelvis were performed with IV contrast. Coronal and sagittal reformats are performed Exposure: One or more of the following individualized dose reduction techniques were utilized for this examination: 1. Automated exposure control 2. Adjustment of the mA and/or kV according to patient size 3. Use of iterative reconstruction technique FINDINGS: There is a 7 mm hypodense nodule identified in the left lobe of thyroid gland. Mild cardiomegaly. Coronary artery calcifications identified. No radiologically significant mediastinal lymphadenopathy. The previously visualized right middle lobe lung airspace opacity has near completely resolved. Mild bibasilar lung atelectasis. The visualized liver, spleen, adrenals grossly appears unremarkable. Gallbladder is mildly distended. The stomach is mildly distended. The visualized pancreas grossly appears unremarkable. The small bowel is nondilated. Feces and gas noted in the colon. The gallbladder is mildly distended. There is a calcification identified in the right ureterovesical junction abutting the urinary bladder wall measuring 3.5 mm could be a calculus. No evidence of hydronephrosis. Inflammatory fat stranding identified about the bilateral kidneys again identified. There are numerous cystic structures identified in the bilateral kidneys the largest measuring 20 HU. Intrarenal collecting system calculi identified in the left kidney similar to prior exam. Mild degenerative changes thoracic and lumbar spine. IMPRESSION: 1. The previously visualized right middle lobe lung airspace opacity has near completely resolved. 2. Fat stranding identified about the bilateral kidneys similar to prior exam uncertain etiology. Probably due to medical renal disease. Renal infection is not excluded. This is stable since prior exams of 2017. Bilateral renal cysts. 3. 3.5 mm calcification identified in the urinary bladder abutting the right ureterovesical junction could be calculus. No hydronephrosis. Electronically signed by: John Pepper MD (02/24/2020 4:23 PM) [id number]
== END | disposition home or self-care (01) ==
LOC: CT 11:27
PROVIDERS: ATTEND Family Medicine
DX: E04.1 Nontoxic single thyroid nodule (principal); I51.7 Cardiomegaly; N28.1 Cyst of kidney, acquired; I25.10 Atherosclerotic heart disease of native coronary artery without angina pectoris; N32.89 Other specified disorders of bladder; N20.0 Calculus of kidney; M47.815 Spondylosis without myelopathy or radiculopathy, thoracolumbar region
CPT/HCPCS: 71260; 74178; Q9967

== ENCOUNTER 2020-07-21 11:00 | Emergency (ER) | payer MEDICARE, OTHER ==
[~2020-07-21] VITALS: Ht 182.9 cm; Wt 86.3 kg
[~2020-07-21 11:00] MED LIST changes: -CONTRAST GIVEN. MC PRN; -IOHEXOL 300 MG/ML 100ML VIAL. IV ONE
--- NOTE | 2020-07-21 11:44 | PHYS DOC ---
Past Medical History Past Medical History: Diabetes-Type II, Hypertension, Renal Failure Past Surgical History: Other Additional Past Surgical Histo: Dialysis shunt placed. Smoking Status: Never Smoker Alcohol Use: None Drug Use: None General Adult EDM: Chief Complaint: FATIGUE HPI: HPI: Patient is a 84 year old male with history of diabetes type 2, hypertension, end-stage kidney disease on dialysis Sunday, Sunday, Sunday presenting today from home after dialysis. Patient states he finished his dialysis session, was on the way back home with the , they got home the felt he was weak and decided to bring him back to the emergency room. also states patient was altered. Patient is alert and oriented x4 and questioning why he was brought to the emergency room. Patient denies any symptoms. Review of Systems: Review of Systems: Constitutional: Denies fever or chills. [] Eyes: Denies change in visual acuity. [] HENT: Denies nasal congestion or sore throat. [] Respiratory: Denies cough or shortness of breath. [] Cardiovascular: Denies chest pain or edema. [] GI: Denies abdominal pain, nausea, vomiting, bloody stools or diarrhea. [] : Denies dysuria. [] Musculoskeletal: Denies back pain or joint pain. [] Integument: Denies rash. [] Neurologic: Reports generalized weakness. Reports altered mental status. Denies headache, focal weakness or sensory changes. [] ] Psychiatric: Denies depression or anxiety. [] Heart Score: Risk Factors: Risk Factors: DM, Current or recent (<one month) smoker, HTN, HLP, family history of CAD, obesity. Risk Scores: Score 0 - 3: 2.5% MACE over next 6 weeks - Discharge Home Score 4 - 6: 20.3% MACE over next 6 weeks - Admit for Clinical Observation Score 7 - 10: 72.7% MACE over next 6 weeks - Early Invasive Strategies Allergies: Allergies: Allergies Coded Allergies Type Severity Reaction Last Updated Verified No Known Allergies Allergy Unknown 02/19/17 Yes Physical Exam: PE: Constitutional: Well developed, well nourished, no acute distress, non-toxic appearance. [] HENT: Normocephalic, atraumatic, bilateral external ears normal, oropharynx moist, no oral exudates, nose normal. [] Eyes: PERRLA, EOMI, conjunctiva normal, no discharge. [] Neck: Normal range of motion, no tenderness, supple, no stridor. [] Cardiovascular:Heart rate regular rhythm Lungs & Thorax: Bilateral breath sounds clear to auscultation [] Abdomen: Bowel sounds normal, soft, no tenderness, no masses, no pulsatile masses. [] Skin: Warm, dry, no erythema, no rash. Dialysis fistula left upper extremity with positive thrill and bruit Back: No tenderness, no CVA tenderness. [] Extremities: No tenderness, no cyanosis, no clubbing, ROM intact, no edema. [] Neurologic: Alert and oriented X 3, normal motor function, normal sensory function, no focal deficits noted. Cranial nerves II through XII intact Psychologic: Affect normal, judgement normal, mood normal. [] EKG: EK interpreted by Dr. Leger sinus rhythm HR 78 no STEMI[] Radiology/Procedures: Radiology/Procedures: []PROCEDURE: CT HEAD WO CONTRAST Exam: CT head without contrast. Date: 07/21/2020, comparison:CT Head from 03/30/2017 Indication: Weakness Technique: 5 mm axial images of the head were obtained without contrast. Findings: There is low attenuation within the periventricular white matter consistent with chronic small vessel ischemic disease. Prominence of cortical sulci and ventricular system is noted. There is cerebral atrophy. Midline structures are central. No hydrocephalus. No suspicious cerebral edema. No mass lesion or midline shift is seen. No extra axial fluid collection, intracranial hemorrhage or acute ischemia is detected. The visualized paranasal sinuses and mastoid air cells are clear. The osseous calvarium appears unremarkable. Impression: 1.Chronic small vessel ischemic disease and cerebral atrophy. 2.No acute findings. PQRS Compliance Statement: One or more of the following individualized dose reduction techniques were utilized for this examination: 1. Automated exposure control 2. Adjustment of the mA and/or kV according to patient size 3. Use of iterative reconstruction technique Electronically signed by: Fátima Mora MD (07/21/2020 12:19 PM) [id number] DICTATED and SIGNED BY: FÁTIMA MORA MD DATE: 07/21/20 [id number] PROCEDURE: PORTABLE CHEST 1V EXAM: CHEST ONE VIEW. HISTORY: Weakness. COMPARISON: 11/23/2019. FINDINGS: A frontal view of the chest is obtained. There are no confluent infiltrates. There is no pneumothorax or pleural effusion. The heart is not enlarged. There are atherosclerotic calcifications of the aorta. IMPRESSION: 1. No confluent infiltrates. Electronically signed by: Kurtis Lindsey MD (07/21/2020 11:54 AM) [id number] DICTATED and SIGNED BY: LAZARUS LINDSEY MD DATE: 07/21/20 [id number] Course & Med Decision Making: Course & Med Decision Making Pertinent Labs and Imaging studies reviewed. (See chart for details) This is a 84-year-old male patient presented to the ED today after having dialysis, reports patient was weak and altered. Patient is alert oriented x4 has no complaints wondering why the brought him to the ED. also state patient got up after dialysis and fell. Patient states his walker was far out of his reach while he was trying to stretch to catch the walker after sitting for 4 hours in dialysis he over leaned forward and fell. Denies hitting his head on the ground. CT of the head is negative for any acute findings, chest x-ray is negative, EKG is negative. CBC with no acute findings. CMP with normal potassium, creatinine 5.8 with BUN is normal. Vitals are stable with BP of 115/57 HR, 76, resp. 20 Oxygen 97% on RA. Patient continues to be alert oriented x4. I spoke to . reports co ncern of patient falling after dialysis. Patient has no complaints. Will discharge to home. Follow-up with PCP. Provided return [place] Disclaimer: Dimple Disclaimer: This electronic medical record was generated, in whole or in part, using a voice recognition dictation system. Departure Departure Impression: Primary Impression: Weakness Disposition: 01 DC HOME SELF CARE/HOMELESS Condition: STABLE Referrals: TOBIN BUTLER MD (PCP) Follow-up in the course of this week or next week Patient Instructions: Weakness, [id number] Additional Instructions: You were evaluated in the emergency room, your work-up was negative for any acute findings. Please follow up with your doctor in 1-2 weeks SANDEEP BUSTOS APRN Jul 21, 2020 11:44
[2020-07-21 11:55] LABS: BASO # 0.1 x10^3/uL (0.0-0.2); BASO % 1 % (0-3); EOS # 0.8 x10^3/uL (0.0-0.7); EOS % 7 % (0-3); HEMATOCRIT 33.3 % (39.0-53.0); HEMOGLOBIN 11.2 g/dL (13.0-17.5); LYMPH # 1.7 x10^3/uL (1.0-4.8); LYMPH % 16 % (24-48); MEAN CORPUSCULAR HEMOGLOBIN 31 pg (25-35); MEAN CORPUSCULAR HGB CONC 34 g/dL (31-37); MEAN CORPUSCULAR VOLUME 94 fL (79-100); MONO # 0.7 x10^3/uL (0.0-1.1); MONO % 6 % (0-9); NEUT # 7.7 x10^3/uL (1.8-7.7); NEUT % 70 % (31-73); PLATELET COUNT 206 x10^3/uL (140-400); RED BLOOD COUNT 3.55 x10^6/uL (4.30-5.70); RED CELL DISTRIBUTION WIDTH 13.8 % (11.5-14.5); WHITE BLOOD COUNT 10.9 x10^3/uL (4.0-11.0)
--- NOTE | 2020-07-21 11:56 | RAD ---
EXAM: CHEST ONE VIEW. HISTORY: Weakness. COMPARISON: 11/23/2019. FINDINGS: A frontal view of the chest is obtained. There are no confluent infiltrates. There is no pneumothorax or pleural effusion. The heart is not en larged. There are atherosclerotic calcifications of the aorta. IMPRESSION: 1. No confluent infiltrates. Electronically signed by: Kurtis Lindsey MD (07/21/2020 11:54 AM) [id number]
[2020-07-21 12:10] LABS: CALCIUM 8.9 mg/dL (8.5-10.1); CREATININE 5.8 mg/dL (0.7-1.3); GFR 11.3; POTASSIUM 3.9 mmol/L (3.5-5.1)
[2020-07-21 12:15] LABS: ALBUMIN 3.2 g/dL (3.4-5.0); ALBUMIN/GLOBULIN RATIO 0.6 (1.0-1.7); MAGNESIUM 1.8 mg/dL (1.8-2.4); TOTAL BILIRUBIN 0.5 mg/dL (0.2-1.0); TOTAL PROTEIN 8.6 g/dL (6.4-8.2)
--- NOTE | 2020-07-21 12:21 | RAD ---
Exam: CT head without contrast. Date: 07/21/2020, comparison:CT Head from 03/30/2017 Indication: Weakness Technique: 5 mm axial images of the head were obtained without contrast. Findings: There is low attenuation within the periventricular white matter consistent with chronic small vessel ischemic disease. Prominence of cortical sulci and ventricular system is noted. There is cerebral at rophy. Midline structures are central. No hydrocephalus. No suspicious cerebral edema. No mass lesion or mid line shift is seen. No extra axial fluid collection, intracranial hemorrhage or acute ischemia is de tected. The visualized paranasal sinuses and mastoid air cells are clear. The osseous calvarium appea rs unremarkable. Impression: 1.Chronic small vessel ischemic disease and cerebral atrophy. 2.No acute findings. PQRS Compliance Statement: One or more of the following individualized dose reduction techniques were utilized for this examinat ion: 1. Automated exposure control 2. Adjustment of the mA and/or kV according to patient size 3. Use of iterative reconstruction technique Electronically signed by: Fátima Mora MD (07/21/2020 12:19 PM) [id number]
[2020-07-21 12:53] VITALS: BP 115/57
== END 2020-07-21 14:00 | disposition home or self-care (01) ==
LOC: ER 11:00
DX: R53.1 Weakness (principal); R41.82 Altered mental status, unspecified; Z99.2 Dependence on renal dialysis; I12.0 Hypertensive chronic kidney disease with stage 5 chronic kidney disease or end stage renal disease; E11.22 Type 2 diabetes mellitus with diabetic chronic kidney disease; N18.6 End stage renal disease
CPT/HCPCS: 36415; 70450; 71045; 80053; 83735; 84484; 85025; 93005; 99285-25